=== PATIENT | female | born 1935 | race Caucasian/White ===

== ENCOUNTER 2016-09-11 09:41 | Emergency (ER) | payer MEDICARE ==
[~2016-09-11] VITALS: Ht 152.4 cm; Wt 70.0 kg
[2016-09-11 09:47] VITALS: BP 138/80
[2016-09-11] MEDS ORDERED: MORPHINE SULFATE 4 MG/ML, 1ML ONE (11:13)
[2016-09-11] MEDS ORDERED: ONDANSETRON 2MG/ML, 2ML ONE (11:13)
[2016-09-11] MEDS ORDERED: SODIUM CHLORIDE FLUSH 10ML SYR IVF ONE (11:30)
[2016-09-11] MEDS ORDERED: ONDANSETRON 2MG/ML, 2ML IVPush ONE (11:30)
[2016-09-11] MEDS ORDERED: MORPHINE SULFATE 4 MG/ML, 1ML IVPush PRN (11:30)
[2016-09-11 12:24] LABS: BLOOD UREA NITROGEN 11 mg/dL (7-18)
[2016-09-11 12:30] LABS: IS PT STATUS REG ER OR PRE ER? YES
== END 2016-09-11 13:28 | disposition home or self-care (01) ==
LOC: ED 11:07
DX: S42.291A Other displaced fracture of upper end of right humerus, initial encounter for closed fracture (principal); Z90.49 Acquired absence of other specified parts of digestive tract; Z90.710 Acquired absence of both cervix and uterus; W01.0XXA Fall on same level from slipping, tripping and stumbling without subsequent striking against object, initial encounter; Y93.89 Activity, other specified; Y92.89 Other specified places as the place of occurrence of the external cause; Y99.8 Other external cause status
CPT/HCPCS: 36415; 71010; 73030; 80048; 82040; 84484; 85025; 85610; 93005; 96374; 96375; 99285; J2405

== ENCOUNTER → 2016-09-11 | Outpatient (CLI) | payer MEDICARE ==
[~2016-09-11] MED LIST: ASPI-496 PO; BUDE3CAP6 PO; CHOL10002 PO; CHOL4PAC2 PO; NIAC400C5 PO; PANT40TA3 PO; RED600CA2 PO; TRAM-28 PO; TRAZ100T15 PO; WARF5TAB7 PO-COUM
== END | disposition home or self-care (01) ==
LOC: CFH 08:58
PROVIDERS: ATTEND Internal Medicine
DX: R06.02 Shortness of breath (principal)
CPT/HCPCS: 71020

== ENCOUNTER → 2017-02-08 | Outpatient (CLI) | payer MEDICARE ==
[~2017-02-08] MED LIST changes: +FENO48TA5 PO; +METO25TA91 PO; +OXYC5CAP2 PO; +SIME180C44 PO; -TRAM-28 PO; +TRAM-47 PO; +TRAZ150T62 PO; +WARF6TAB PO; +eliquis PO
== END | disposition home or self-care (01) ==
LOC: STAR 10:04
PROVIDERS: ATTEND Orthopaedic Surgery
DX: Z02.9 Encounter for administrative examinations, unspecified (principal)

== ENCOUNTER 2017-02-15 17:05 | Emergency (ER) | payer MEDICARE ==
[~2017-02-15] VITALS: Ht 152.4 cm; Wt 61.4 kg
[2017-02-15 17:13] VITALS: BP 126/72
[2017-02-15] MEDS ORDERED: SODIUM CHLORIDE 0.9% 1,000ML IVBOLUS ONE (18:00)
[2017-02-15 18:08] LABS: HEMATOCRIT 30.3 % (34.6-47.8); HEMOGLOBIN 9.9 g/dL (11.7-16.4); WHITE BLOOD COUNT 12.5 x10^3/uL (3.4-10)
[2017-02-15 18:20] LABS: BLOOD UREA NITROGEN 10 mg/dL (7-18)
[2017-02-15 18:26] LABS: IS PT STATUS REG ER OR PRE ER? YES
== END 2017-02-15 19:00 | disposition home or self-care (01) ==
LOC: ED 18:01
DX: R06.02 Shortness of breath (principal); D62 Acute posthemorrhagic anemia; F17.210 Nicotine dependence, cigarettes, uncomplicated
CPT/HCPCS: 36415; 71010; 80048; 82040; 83880; 84484; 85025; 93005; 99285

== ENCOUNTER 2018-04-23 08:30 | Inpatient (IN) | payer MEDICARE ==
[~2018-04-23] VITALS: Ht 152.4 cm; Wt 74.7 kg
[~2018-04-23 08:30] MED LIST changes: +TRAZ-137 PO; -TRAZ100T15 PO; +WARF-36 PO-COUM; -WARF5TAB7 PO-COUM
[2018-04-23] MEDS ORDERED: SODIUM CHLORIDE 0.9% 1,000ML IVBOLUS ONE (09:00)
[2018-04-23 09:29] LABS: BASOPHILS # (AUTO) 0.02 x10^3/uL (0-0.1); BASOPHILS % (AUTO) 0 % (0-1); EOSINOPHILS % (AUTO) 14 % (1-7); LYMPHOCYTES # (AUTO) 1.17 x10^3/uL (1-3.4); LYMPHOCYTES % (AUTO) 17 % (22-44); MD NO; MEAN CORPUSCULAR HEMOGLOBIN 31.3 pg (27.0-34.8); MEAN CORPUSCULAR HGB CONC 33.9 g/dL (32.4-35.8); MEAN CORPUSCULAR VOLUME 92.3 fL (80-100); MEAN PLATELET VOLUME 8.3 fL (7.4-10.4); MONOCYTES % (AUTO) 4 % (2-9); NEUTROPHILS # (AUTO) 4.54 x10^3/uL (1.8-6.8); NEUTROPHILS % (AUTO) 65 % (42-75); PLATELET COUNT 302 x10^3/uL (130-400); RED BLOOD COUNT 4.21 x10^6/uL (3.82-5.3); RED CELL DISTRIBUTION WIDTH 14.5 % (9.6-15.2)
[2018-04-23 09:32] LABS: INTERNATIONAL NORMALIZED RATIO 2.63 (0.93-1.1); PROTHROMBIN TIME 26.8 Seconds (9.6-11.5)
[2018-04-23 09:40] LABS: ALANINE AMINOTRANSFERASE 18 U/L (12-78); ALBUMIN 3.1 g/dL (3.4-5.0); CHLORIDE 107 mmol/L (98-107); CREATININE 0.99 mg/dL (0.55-1.02)
[2018-04-23 09:42] LABS: ALKALINE PHOSPHATASE 60 U/L (45-117); BILIRUBIN,TOTAL 0.5 mg/dL (0.2-1.0); CALCIUM 8.7 mg/dL (8.5-10.1); TOTAL PROTEIN 6.7 g/dL (6.4-8.2)
[2018-04-23 09:55] LABS: ANION GAP 9 mmol/L (5-15)
[2018-04-23 10:19] LABS: MICROSCOPIC INDICATED
[2018-04-23 10:58] LABS: CULTURE INDICATED? YES
[2018-04-23] MEDS ORDERED: CEFTRIAXONE PMX 1GM/50ML 50 ML IV ONE (11:00)
[2018-04-23] MEDS ORDERED: CEFTRIAXONE PMX 1GM/50ML 50 ML ONE (11:19)
[2018-04-23] MEDS: SODIUM CHLORIDE 0.9% 1,000 ML IV SCH ×4 (11:27→21:25)
[2018-04-23] MEDS ORDERED: WARF3TAB8 PO (11:35)
[2018-04-23] MEDS ORDERED: LABETALOL 5MG/ML, 20ML IVPush PRN (12:30)
[2018-04-23] MEDS ORDERED: POLYETHYLENE GLYCOL 17 GM PACKET PO PRN (12:30)
[2018-04-23] MEDS ORDERED: ONDANSETRON ODT 4 MG PO PRN (12:30)
[2018-04-23] MEDS ORDERED: ONDANSETRON 2MG/ML, 2ML IVPush PRN (12:30)
[2018-04-23 13:00] VITALS: BP 141/74
[2018-04-23] MEDS ORDERED: SIMETHICONE 125 MG CHEW TAB PO PRN (16:30)
[2018-04-23] MEDS ORDERED: CEFTRIAXONE PMX 1GM/50ML 50 ML IV SCH (16:30)
[2018-04-23] MEDS ORDERED: OXYcodone IR 5MG TABLET PO PRN (16:30)
[2018-04-23] MEDS ORDERED: WARFARIN 2 MG TABLET PO-COUM ONE (18:00)
[2018-04-23] MEDS: TRAZODONE 150MG TABLET PO SCH (21:49)
[2018-04-23 21:51] VITALS: BP 149/79
[2018-04-24] MEDS: SODIUM CHLORIDE 0.9% 1,000 ML IV SCH ×3 (00:47→22:49)
[2018-04-24 02:18] VITALS: BP 145/79
[2018-04-24 04:28] LABS: CLOSTRIDIUM DIFFICILE ANTIGEN NEGATIVE; CLOSTRIDIUM DIFFICILE TOXIN NEGATIVE (Negative)
[2018-04-24 06:31] LABS: BASOPHILS # (AUTO) 0.08 x10^3/uL (0-0.1); BASOPHILS % (AUTO) 1 % (0-1); EOSINOPHILS # (AUTO) 1.01 x10^3/uL (0-0.4); EOSINOPHILS % (AUTO) 16 % (1-7); LYMPHOCYTES # (AUTO) 1.56 x10^3/uL (1-3.4); LYMPHOCYTES % (AUTO) 24 % (22-44); MD NO; MEAN CORPUSCULAR HEMOGLOBIN 30.9 pg (27.0-34.8); MEAN CORPUSCULAR HGB CONC 33.1 g/dL (32.4-35.8); MEAN CORPUSCULAR VOLUME 93.5 fL (80-100); MEAN PLATELET VOLUME 8.5 fL (7.4-10.4); MONOCYTES # (AUTO) 0.55 x10^3/uL (0.2-0.8); MONOCYTES % (AUTO) 9 % (2-9); NEUTROPHILS # (AUTO) 3.28 x10^3/uL (1.8-6.8); NEUTROPHILS % (AUTO) 51 % (42-75); PLATELET COUNT 276 x10^3/uL (130-400); RED BLOOD COUNT 3.82 x10^6/uL (3.82-5.3); RED CELL DISTRIBUTION WIDTH 14.9 % (9.6-15.2)
[2018-04-24 06:43] LABS: ALANINE AMINOTRANSFERASE 16 U/L (12-78); ALBUMIN 2.7 g/dL (3.4-5.0); ANION GAP 8 mmol/L (5-15); CALCIUM 7.9 mg/dL (8.5-10.1); CHLORIDE 112 mmol/L (98-107)
[2018-04-24 06:54] LABS: ALKALINE PHOSPHATASE 55 U/L (45-117); BILIRUBIN,TOTAL 0.3 mg/dL (0.2-1.0)
[2018-04-24 07:11] VITALS: BP 143/62
[2018-04-24] MEDS: SENNA/DOCUSATE TABLET PO SCH (09:00)
[2018-04-24] MEDS ORDERED: METOPROLOL SUCCINATE 25 MG TAB.ER.24H PO SCH (09:00)
[2018-04-24] MEDS: CHOLESTYRAMINE LIGHT 4GM PACKET PO SCH (09:37)
[2018-04-24] MEDS: FENOFIBRATE 54 MG TABLET PO SCH (09:37)
[2018-04-24 09:44] LABS: INTERNATIONAL NORMALIZED RATIO 2.57 (0.93-1.1); PROTHROMBIN TIME 26.2 Seconds (9.6-11.5)
[2018-04-24] MEDS: CEFTRIAXONE PMX 1GM/50ML 50 ML IV SCH (12:53)
[2018-04-24 14:00] VITALS: BP 181/87
[2018-04-24] MEDS ORDERED: WARFARIN 2 MG TABLET PO-COUM ONE (18:00)
[2018-04-24 19:15] VITALS: BP 170/77
[2018-04-24] MEDS ORDERED: hydrALAzine 20 MG/ML, 1ML IV PRN (20:30)
[2018-04-24] MEDS ORDERED: LABETALOL 5MG/ML, 20ML IVPush PRN (20:30)
[2018-04-24 20:54] VITALS: BP 175/75
[2018-04-24] MEDS: TRAZODONE 150MG TABLET PO SCH (21:00)
[2018-04-24 21:37] VITALS: BP 145/67
[2018-04-24] MEDS ORDERED: OMNIPAQUE 350 MG/ML, 75ML BOTTLE ONE (22:10)
[2018-04-25 00:01] VITALS: BP 161/81
[2018-04-25 00:58] VITALS: BP 134/82
[2018-04-25 06:02] LABS: BASOPHILS # (AUTO) 0.07 x10^3/uL (0-0.1); BASOPHILS % (AUTO) 1 % (0-1); EOSINOPHILS # (AUTO) 0.91 x10^3/uL (0-0.4); EOSINOPHILS % (AUTO) 12 % (1-7); LYMPHOCYTES # (AUTO) 2.23 x10^3/uL (1-3.4); LYMPHOCYTES % (AUTO) 28 % (22-44); MD NO; MEAN CORPUSCULAR HEMOGLOBIN 31.1 pg (27.0-34.8); MEAN CORPUSCULAR HGB CONC 33.4 g/dL (32.4-35.8); MEAN CORPUSCULAR VOLUME 93.1 fL (80-100); MEAN PLATELET VOLUME 7.9 fL (7.4-10.4); MONOCYTES # (AUTO) 0.61 x10^3/uL (0.2-0.8); MONOCYTES % (AUTO) 8 % (2-9); NEUTROPHILS % (AUTO) 52 % (42-75); PLATELET COUNT 279 x10^3/uL (130-400); RED BLOOD COUNT 3.73 x10^6/uL (3.82-5.3); RED CELL DISTRIBUTION WIDTH 14.9 % (9.6-15.2)
[2018-04-25 06:10] LABS: ALBUMIN 2.7 g/dL (3.4-5.0); ANION GAP 6 mmol/L (5-15); CALCIUM 7.9 mg/dL (8.5-10.1); CHLORIDE 113 mmol/L (98-107); CREATININE 0.72 mg/dL (0.55-1.02)
[2018-04-25 07:40] VITALS: BP 145/80
[2018-04-25] MEDS: SODIUM CHLORIDE 0.9% 1,000 ML IV SCH (08:06)
[2018-04-25] MEDS: FENOFIBRATE 54 MG TABLET PO SCH (08:14)
[2018-04-25] MEDS: SENNA/DOCUSATE TABLET PO SCH (08:16)
[2018-04-25 08:55] LABS: INTERNATIONAL NORMALIZED RATIO 2.22 (0.93-1.1); PROTHROMBIN TIME 22.7 Seconds (9.6-11.5)
[2018-04-25] MEDS ORDERED: CARVEDILOL 3.125 MG TABLET PO SCH (09:30)
[2018-04-25] MEDS ORDERED: AMLODIPINE 5 MG TABLET PO SCH (09:30)
[2018-04-25] MEDS ORDERED: CARV3.1212 PO (10:49)
[2018-04-25] MEDS ORDERED: CEFD300C37 PO (10:50)
[2018-04-25] MEDS: CHOLESTYRAMINE LIGHT 4GM PACKET PO SCH (11:07)
[2018-04-25] MEDS: CEFTRIAXONE PMX 1GM/50ML 50 ML IV SCH (11:53)
[2018-04-25] MEDS ORDERED: WARFARIN 3 MG TABLET PO-COUM ONE (18:00)
== END 2018-04-25 13:35 | disposition home health service (06) | DRG 690 ==
LOC: ED 09:58 → EDIP 11:06 → 4WST 11:51 → DCLOUNGE 04-25 13:21
PROVIDERS: ADMIT Hospitalist; ATTEND Hospitalist
DX: N39.0 Urinary tract infection, site not specified (principal); E87.2 Acidosis; K51.90 Ulcerative colitis, unspecified, without complications; I11.9 Hypertensive heart disease without heart failure; E78.5 Hyperlipidemia, unspecified; K57.90 Diverticulosis of intestine, part unspecified, without perforation or abscess without bleeding; I70.0 Atherosclerosis of aorta; Z96.611 Presence of right artificial shoulder joint; F17.200 Nicotine dependence, unspecified, uncomplicated; I71.4 Abdominal aortic aneurysm, without rupture; Z82.3 Family history of stroke; Z83.3 Family history of diabetes mellitus; Z86.718 Personal history of other venous thrombosis and embolism; Z87.440 Personal history of urinary (tract) infections; Z90.49 Acquired absence of other specified parts of digestive tract; Z90.710 Acquired absence of both cervix and uterus; Z90.89 Acquired absence of other organs; Z79.01 Long term (current) use of anticoagulants; Z79.899 Other long term (current) drug therapy
CPT/HCPCS: 36415; 71045; 71260; 74176; 80048; 80053; 81001; 82040; 83605; 83735; 84100; 84145; 84439; 84443; 85025; 85610; 87040; 87086; 87324; 96360; 96361; G0378; J0696; Q9967; J0360; J7030

== ENCOUNTER → 2018-09-25 | Outpatient (CLI) | payer MEDICARE ==
[~2018-09-25] MED LIST changes: +CARV3.1212 PO; +CEFD300C37 PO; +WARF3TAB8 PO
== END | disposition home or self-care (01) ==
LOC: CVU 07:59
PROVIDERS: ATTEND Internal Medicine Cardiovascular Disease
DX: I77.1 Stricture of artery (principal); I70.201 Unspecified atherosclerosis of native arteries of extremities, right leg; I71.4 Abdominal aortic aneurysm, without rupture; E78.5 Hyperlipidemia, unspecified; Z95.828 Presence of other vascular implants and grafts
CPT/HCPCS: 93978

== ENCOUNTER 2019-09-06 09:21 | Inpatient (IN) | payer MEDICARE ==
[~2019-09-06] VITALS: Ht 152.4 cm; Wt 64.5 kg
[~2019-09-06 09:21] MED LIST changes: +FENO48TA10 PO; -FENO48TA5 PO; -TRAZ-137 PO; +TRAZ-175 PO
[2019-09-06] MEDS ORDERED: HYDROcodone/APAP 5/325 TABLET PO ONE (09:30)
--- NOTE | 2019-09-06 09:40 | NUR ---
PT TO XRAY
[2019-09-06] MEDS ORDERED: HYDROcodone/APAP 5/325 TABLET ONE (09:54)
--- NOTE | 2019-09-06 10:01 | NUR ---
PT BACK FROM IMAGING, MEDICATED ACCORDING TO MAR, IN BED, RESTING, TV ON FOR DISTRACTION.
[2019-09-06] MEDS ORDERED: WARF1TAB9 PO (10:09)
[2019-09-06] MEDS ORDERED: METO25TA35 PO (10:09)
--- NOTE | 2019-09-06 10:58 | NUR ---
ERP AT BEDSIDE, UPDATING PT ON POC, AND IMAGING RESULTS. PT IN BED, RESPIRATIONS EVEN AND UNLABORED, NO SIGNS OF DISTRESS.
[2019-09-06] MEDS ORDERED: SODIUM CHLORIDE FLUSH 10ML SYR IVF ONE (11:00)
[2019-09-06 11:47] LABS: BASOPHILS # (AUTO) 0.11 x10^3/uL (0-0.1); BASOPHILS % (AUTO) 1 % (0-1); EOSINOPHILS # (AUTO) 0.15 x10^3/uL (0-0.4); EOSINOPHILS % (AUTO) 2 % (1-7); LYMPHOCYTES # (AUTO) 1.87 x10^3/uL (1-3.4); LYMPHOCYTES % (AUTO) 19 % (22-44); MD NO; MEAN CORPUSCULAR HEMOGLOBIN 30.1 pg (27.0-34.8); MEAN CORPUSCULAR HGB CONC 32.7 g/dL (32.4-35.8); MEAN CORPUSCULAR VOLUME 92.1 fL (80-100); MEAN PLATELET VOLUME 8.8 fL (7.4-10.4); MONOCYTES # (AUTO) 0.54 x10^3/uL (0.2-0.8); MONOCYTES % (AUTO) 5 % (2-9); NEUTROPHILS # (AUTO) 7.37 x10^3/uL (1.8-6.8); NEUTROPHILS % (AUTO) 73 % (42-75); PLATELET COUNT 286 x10^3/uL (130-400); RED BLOOD COUNT 4.69 x10^6/uL (3.82-5.3); RED CELL DISTRIBUTION WIDTH 14.8 % (9.6-15.2)
[2019-09-06 11:57] LABS: ALBUMIN 2.8 g/dL (3.4-5.0); ANION GAP 8 mmol/L (5-15); CALCIUM 8.9 mg/dL (8.5-10.1); CHLORIDE 107 mmol/L (98-107); CREATININE 0.82 mg/dL (0.55-1.02)
--- NOTE | 2019-09-06 11:59 | NUR ---
ANILA GAITAN AT BEDSIDE TO ATTEMPT IV
--- NOTE | 2019-09-06 12:26 | NUR ---
PT IN BED, STRAIGHT CATH PERFORMED PER PROTOCOL, TOLERATED WELL, NO SIGNS OF DISTRESS.
[2019-09-06] MEDS ORDERED: ACETAMINOPHEN 325 MG TABLET PO PRN (12:30)
[2019-09-06] MEDS ORDERED: hydrALAzine 20 MG/ML, 1ML IVPush PRN (12:30)
[2019-09-06 12:58] LABS: MICROSCOPIC AUTO
[2019-09-06 12:59] LABS: CULTURE INDICATED? NO
[2019-09-06 13:03] LABS: INTERNATIONAL NORMALIZED RATIO 6.51 (0.93-1.1); PROTHROMBIN TIME 70.3 Seconds (9.6-11.5)
--- NOTE | 2019-09-06 13:33 | NUR ---
report given to carl gomez. pt to imaging.
[2019-09-06 20:04] VITALS: BP 139/84
[2019-09-06] MEDS: TRAZODONE 150MG TABLET PO SCH (23:04)
[2019-09-07] MEDS: morphine SULFATE 10 MG/ML, 1ML IVPush PRN ×6 (01:36→23:27)
[2019-09-07 01:39] VITALS: BP 152/99
[2019-09-07 05:19] LABS: BASOPHILS # (AUTO) 0.08 x10^3/uL (0-0.1); BASOPHILS % (AUTO) 1 % (0-1); EOSINOPHILS # (AUTO) 0.67 x10^3/uL (0-0.4); EOSINOPHILS % (AUTO) 7 % (1-7); LYMPHOCYTES # (AUTO) 2.42 x10^3/uL (1-3.4); LYMPHOCYTES % (AUTO) 25 % (22-44); MD NO; MEAN CORPUSCULAR HEMOGLOBIN 30.6 pg (27.0-34.8); MEAN CORPUSCULAR HGB CONC 32.8 g/dL (32.4-35.8); MEAN CORPUSCULAR VOLUME 93.3 fL (80-100); MEAN PLATELET VOLUME 8.9 fL (7.4-10.4); MONOCYTES # (AUTO) 0.61 x10^3/uL (0.2-0.8); MONOCYTES % (AUTO) 6 % (2-9); NEUTROPHILS # (AUTO) 6.06 x10^3/uL (1.8-6.8); NEUTROPHILS % (AUTO) 62 % (42-75); PLATELET COUNT 273 x10^3/uL (130-400); RED BLOOD COUNT 4.37 x10^6/uL (3.82-5.3); RED CELL DISTRIBUTION WIDTH 14.7 % (9.6-15.2)
[2019-09-07 05:34] LABS: CHLORIDE 107 mmol/L (98-107); INTERNATIONAL NORMALIZED RATIO 5.18 (0.93-1.1); PROTHROMBIN TIME 55.8 Seconds (9.6-11.5)
[2019-09-07 05:40] LABS: ANION GAP 9 mmol/L (5-15); CALCIUM 8.7 mg/dL (8.5-10.1); CREATININE 0.57 mg/dL (0.55-1.02)
[2019-09-07 06:39] VITALS: BP 150/69
[2019-09-07] MEDS: FENOFIBRATE 54 MG TABLET PO SCH (07:41)
[2019-09-07] MEDS: METOPROLOL TARTRATE 25 MG TAB PO SCH (07:41)
[2019-09-07] MEDS ORDERED: PHYTONADIONE 5 MG TABLET PO ONE (11:30)
[2019-09-07] MEDS ORDERED: HEPARIN 5,000 UNITS/ML, 1ML IV ONE (12:00)
[2019-09-07] MEDS ORDERED: HEPARIN 25,000 UNITS/250ML PMX 250 ML IV PRN (12:00)
[2019-09-07] MEDS ORDERED: HEPARIN 5,000 UNITS/ML, 1ML IV PRN (12:00)
[2019-09-07 12:50] VITALS: BP 138/77
[2019-09-07 19:37] VITALS: BP 131/77
[2019-09-07 21:35] LABS: CLOSTRIDIUM DIFFICILE ANTIGEN POSITIVE; CLOSTRIDIUM DIFFICILE TOXIN NEGATIVE (Negative)
[2019-09-07] MEDS: TRAZODONE 150MG TABLET PO SCH (22:20)
[2019-09-08 00:40] VITALS: BP 108/72
[2019-09-08] MEDS: morphine SULFATE 10 MG/ML, 1ML IVPush PRN ×4 (03:18→21:24)
[2019-09-08 05:42] LABS: BASOPHILS # (AUTO) 0.09 x10^3/uL (0-0.1); BASOPHILS % (AUTO) 1 % (0-1); EOSINOPHILS # (AUTO) 0.25 x10^3/uL (0-0.4); EOSINOPHILS % (AUTO) 2 % (1-7); LYMPHOCYTES # (AUTO) 2.74 x10^3/uL (1-3.4); LYMPHOCYTES % (AUTO) 26 % (22-44); MD NO; MEAN CORPUSCULAR HEMOGLOBIN 30.1 pg (27.0-34.8); MEAN CORPUSCULAR HGB CONC 32.5 g/dL (32.4-35.8); MEAN CORPUSCULAR VOLUME 92.7 fL (80-100); MEAN PLATELET VOLUME 9.1 fL (7.4-10.4); MONOCYTES # (AUTO) 0.66 x10^3/uL (0.2-0.8); MONOCYTES % (AUTO) 6 % (2-9); NEUTROPHILS # (AUTO) 6.65 x10^3/uL (1.8-6.8); NEUTROPHILS % (AUTO) 64 % (42-75); PLATELET COUNT 273 x10^3/uL (130-400); RED BLOOD COUNT 4.01 x10^6/uL (3.82-5.3); RED CELL DISTRIBUTION WIDTH 14.6 % (9.6-15.2)
[2019-09-08 05:51] LABS: ANION GAP 8 mmol/L (5-15); CALCIUM 8.6 mg/dL (8.5-10.1); CHLORIDE 104 mmol/L (98-107)
[2019-09-08 05:56] LABS: INTERNATIONAL NORMALIZED RATIO 1.38 (0.93-1.1)
[2019-09-08 05:57] LABS: PROTHROMBIN TIME 14.7 Seconds (9.6-11.5)
[2019-09-08 07:26] VITALS: BP 111/70
[2019-09-08] MEDS: METOPROLOL TARTRATE 25 MG TAB PO SCH (08:04)
[2019-09-08] MEDS: FENOFIBRATE 54 MG TABLET PO SCH (08:05)
[2019-09-08 12:59] VITALS: BP 124/79
[2019-09-08] MEDS ORDERED: HEPARIN 5,000 UNITS/ML, 1ML IV ONE (14:00)
[2019-09-08] MEDS: HEPARIN 25,000 UNITS/250ML PMX 250 ML IV PRN (16:07)
[2019-09-08] MEDS: HEPARIN 5,000 UNITS/ML, 1ML IV PRN (16:08)
[2019-09-08 18:51] VITALS: BP 123/75
[2019-09-08] MEDS: TRAZODONE 150MG TABLET PO SCH (21:20)
[2019-09-09] MEDS: HEPARIN 5,000 UNITS/ML, 1ML IV PRN (02:03)
[2019-09-09 02:37] VITALS: BP 144/79
[2019-09-09 05:57] LABS: BASOPHILS # (AUTO) 0.09 x10^3/uL (0-0.1); BASOPHILS % (AUTO) 1 % (0-1); EOSINOPHILS # (AUTO) 0.63 x10^3/uL (0-0.4); EOSINOPHILS % (AUTO) 7 % (1-7); LYMPHOCYTES # (AUTO) 2.28 x10^3/uL (1-3.4); LYMPHOCYTES % (AUTO) 24 % (22-44); MD NO; MEAN CORPUSCULAR HEMOGLOBIN 30.5 pg (27.0-34.8); MEAN CORPUSCULAR HGB CONC 32.7 g/dL (32.4-35.8); MEAN CORPUSCULAR VOLUME 93.2 fL (80-100); MONOCYTES # (AUTO) 0.66 x10^3/uL (0.2-0.8); MONOCYTES % (AUTO) 7 % (2-9); NEUTROPHILS % (AUTO) 61 % (42-75); PLATELET COUNT 262 x10^3/uL (130-400); RED BLOOD COUNT 3.89 x10^6/uL (3.82-5.3); RED CELL DISTRIBUTION WIDTH 14.4 % (9.6-15.2)
[2019-09-09 06:04] LABS: ANION GAP 6 mmol/L (5-15); CALCIUM 8.5 mg/dL (8.5-10.1); CHLORIDE 102 mmol/L (98-107); CREATININE 0.73 mg/dL (0.55-1.02)
[2019-09-09 07:19] VITALS: BP 157/83
[2019-09-09] MEDS: FENOFIBRATE 54 MG TABLET PO SCH (09:11)
[2019-09-09] MEDS: METOPROLOL TARTRATE 25 MG TAB PO SCH (09:11)
[2019-09-09] MEDS: morphine SULFATE 10 MG/ML, 1ML IVPush PRN ×3 (09:11→20:04)
[2019-09-09 09:25] LABS: INTERNATIONAL NORMALIZED RATIO 1.01 (0.93-1.1); PROTHROMBIN TIME 10.7 Seconds (9.6-11.5)
[2019-09-09] MEDS ORDERED: POTASSIUM CHLORIDE 40 MEQ in SODIUM CHLORIDE 0.9% 500 ML IV ONE (10:30)
[2019-09-09] MEDS: NICOTINE 14MG/24 HR PATCH.TD24 TD SCH (12:54)
[2019-09-09 12:55] VITALS: BP 136/81
[2019-09-09 19:35] VITALS: BP 109/80
[2019-09-09] MEDS: HEPARIN 25,000 UNITS/250ML PMX 250 ML IV PRN (20:03)
[2019-09-09] MEDS: TRAZODONE 150MG TABLET PO SCH (20:04)
[2019-09-10] MEDS: TRAZODONE 150MG TABLET PO SCH ×3 (00:22→21:17)
[2019-09-10 01:13] VITALS: BP 145/88
[2019-09-10 06:40] LABS: BASOPHILS # (AUTO) 0.06 x10^3/uL (0-0.1); BASOPHILS % (AUTO) 1 % (0-1); EOSINOPHILS # (AUTO) 0.63 x10^3/uL (0-0.4); EOSINOPHILS % (AUTO) 6 % (1-7); LYMPHOCYTES # (AUTO) 3.85 x10^3/uL (1-3.4); LYMPHOCYTES % (AUTO) 38 % (22-44); MD NO; MEAN CORPUSCULAR HEMOGLOBIN 30.4 pg (27.0-34.8); MEAN CORPUSCULAR HGB CONC 32.5 g/dL (32.4-35.8); MEAN CORPUSCULAR VOLUME 93.6 fL (80-100); MONOCYTES # (AUTO) 0.63 x10^3/uL (0.2-0.8); MONOCYTES % (AUTO) 6 % (2-9); NEUTROPHILS # (AUTO) 4.97 x10^3/uL (1.8-6.8); NEUTROPHILS % (AUTO) 49 % (42-75); PLATELET COUNT 311 x10^3/uL (130-400); RED BLOOD COUNT 3.94 x10^6/uL (3.82-5.3); RED CELL DISTRIBUTION WIDTH 14.3 % (9.6-15.2)
[2019-09-10 06:50] LABS: CHLORIDE 107 mmol/L (98-107)
[2019-09-10 06:55] LABS: ANION GAP 5 mmol/L (5-15); CALCIUM 8.8 mg/dL (8.5-10.1); CREATININE 0.66 mg/dL (0.55-1.02)
[2019-09-10 07:52] VITALS: BP 157/77
[2019-09-10] MEDS: FENOFIBRATE 54 MG TABLET PO SCH (07:55)
[2019-09-10] MEDS: METOPROLOL TARTRATE 25 MG TAB PO SCH (07:56)
[2019-09-10] MEDS ORDERED: LIDOCAINE 1%, 20ML ONE (09:33)
[2019-09-10] MEDS ORDERED: FENTANYL PF 100 MCG/2ML ONE (10:25)
[2019-09-10] MEDS ORDERED: PROPOFOL 10 MG/ML, 20ML ONE (10:57)
[2019-09-10] MEDS ORDERED: VISIPAQUE 270 MG/ML, 50ML BOTTLE ONE (11:38)
[2019-09-10] MEDS ORDERED: MORPHINE SULFATE 4 MG/ML, 1ML ONE (12:08)
[2019-09-10] MEDS ORDERED: hydrALAzine 20 MG/ML, 1ML ONE (12:08)
[2019-09-10] MEDS: MORPHINE SULFATE 4 MG/ML, 1ML IVPush PRN ×2 (12:11→12:23)
[2019-09-10] MEDS ORDERED: ONDANSETRON 2MG/ML, 2ML IV PRN (12:30)
[2019-09-10] MEDS ORDERED: hydrALAzine 20 MG/ML, 1ML IV PRN (12:30)
[2019-09-10] MEDS ORDERED: OXYcodone 5 MG/5 ML ORAL.SOL UDC PO PRN (12:30)
[2019-09-10] MEDS ORDERED: METOPROLOL 1 MG/ML, 5ML IV PRN (12:30)
[2019-09-10] MEDS ORDERED: FENTANYL PF 100 MCG/2ML IV PRN (12:30)
[2019-09-10] MEDS ORDERED: HYDROmorphone 2 MG/ML, 1ML IVPush PRN (12:30)
[2019-09-10] MEDS ORDERED: LABETALOL 5MG/ML, 20ML IV PRN (12:30)
[2019-09-10 13:51] VITALS: BP 119/73
[2019-09-10] MEDS: NICOTINE 14MG/24 HR PATCH.TD24 TD SCH (14:09)
[2019-09-10] MEDS ORDERED: WARFARIN 2 MG TABLET PO-COUM SCH (18:00)
[2019-09-10 19:03] LABS: INTERNATIONAL NORMALIZED RATIO 0.94 (0.93-1.1)
[2019-09-10 19:23] VITALS: BP 121/69
[2019-09-10] MEDS: morphine SULFATE 10 MG/ML, 1ML IVPush PRN (21:16)
[2019-09-11 02:16] VITALS: BP 148/74
[2019-09-11 05:49] LABS: INTERNATIONAL NORMALIZED RATIO 0.97 (0.93-1.1); PROTHROMBIN TIME 10.3 Seconds (9.6-11.5)
[2019-09-11 07:13] VITALS: BP 124/50
[2019-09-11] MEDS: FENOFIBRATE 54 MG TABLET PO SCH (08:05)
[2019-09-11] MEDS: METOPROLOL TARTRATE 25 MG TAB PO SCH (08:05)
[2019-09-11 12:00] VITALS: BP 143/74
[2019-09-11] MEDS: NICOTINE 14MG/24 HR PATCH.TD24 TD SCH (12:08)
[2019-09-11] MEDS: morphine SULFATE 10 MG/ML, 1ML IVPush PRN ×3 (12:09→21:24)
[2019-09-11] MEDS ORDERED: WARFARIN 2 MG TABLET PO-COUM ONE (17:00)
[2019-09-11 20:33] VITALS: BP 115/74
[2019-09-11] MEDS: TRAZODONE 150MG TABLET PO SCH (21:23)
[2019-09-12 00:27] VITALS: BP 128/63
[2019-09-12 05:25] LABS: BASOPHILS # (AUTO) 0.05 x10^3/uL (0-0.1); BASOPHILS % (AUTO) 1 % (0-1); EOSINOPHILS # (AUTO) 0.49 x10^3/uL (0-0.4); EOSINOPHILS % (AUTO) 5 % (1-7); LYMPHOCYTES # (AUTO) 3.02 x10^3/uL (1-3.4); LYMPHOCYTES % (AUTO) 32 % (22-44); MD NO; MEAN CORPUSCULAR HEMOGLOBIN 30.4 pg (27.0-34.8); MEAN CORPUSCULAR HGB CONC 32.6 g/dL (32.4-35.8); MEAN PLATELET VOLUME 9.2 fL (7.4-10.4); MONOCYTES # (AUTO) 0.68 x10^3/uL (0.2-0.8); MONOCYTES % (AUTO) 7 % (2-9); NEUTROPHILS # (AUTO) 5.28 x10^3/uL (1.8-6.8); NEUTROPHILS % (AUTO) 55 % (42-75); PLATELET COUNT 291 x10^3/uL (130-400); RED BLOOD COUNT 3.79 x10^6/uL (3.82-5.3)
[2019-09-12 05:28] LABS: INTERNATIONAL NORMALIZED RATIO 1.01 (0.93-1.1); PROTHROMBIN TIME 10.7 Seconds (9.6-11.5)
[2019-09-12 05:36] LABS: ANION GAP 7 mmol/L (5-15); CALCIUM 8.7 mg/dL (8.5-10.1); CHLORIDE 107 mmol/L (98-107); CREATININE 0.77 mg/dL (0.55-1.02)
[2019-09-12 08:14] VITALS: BP 136/68
[2019-09-12] MEDS: FENOFIBRATE 54 MG TABLET PO SCH (08:55)
[2019-09-12] MEDS: METOPROLOL TARTRATE 25 MG TAB PO SCH (08:56)
[2019-09-12 12:27] VITALS: BP 135/85
[2019-09-12] MEDS: NICOTINE 14MG/24 HR PATCH.TD24 TD SCH (12:45)
[2019-09-12] MEDS ORDERED: WARFARIN 7.5 MG TABLET PO-COUM ONE (18:00)
[2019-09-12 19:34] VITALS: BP 95/60
[2019-09-12] MEDS: TRAZODONE 150MG TABLET PO SCH (22:04)
[2019-09-13 01:53] VITALS: BP 126/79
[2019-09-13 07:07] VITALS: BP 129/72
[2019-09-13 07:48] LABS: INTERNATIONAL NORMALIZED RATIO 1.35 (0.93-1.1); PROTHROMBIN TIME 14.4 Seconds (9.6-11.5)
[2019-09-13] MEDS: FENOFIBRATE 54 MG TABLET PO SCH (09:11)
[2019-09-13] MEDS: METOPROLOL TARTRATE 25 MG TAB PO SCH (09:11)
[2019-09-13 12:01] VITALS: BP 128/78
[2019-09-13] MEDS: NICOTINE 14MG/24 HR PATCH.TD24 TD SCH (12:53)
[2019-09-13] MEDS ORDERED: WARFARIN 3 MG TABLET PO-COUM ONE (18:00)
== END 2019-09-13 14:23 | disposition home or self-care (01) | DRG 516 ==
LOC: ED 10:37 → EDIP 12:12 → 3N 14:44
PROVIDERS: ADMIT Internal Medicine Infectious Disease; ATTEND Hospitalist
PROC: 0QU03JZ Supplement Lumbar Vertebra with Synthetic Substitute, Percutaneous Approach (ICD-10-PCS; 2019-09-10)
PROC: 0QS03ZZ Reposition Lumbar Vertebra, Percutaneous Approach (ICD-10-PCS; principal; 2019-09-10 10:00)
DX: S32.021A Stable burst fracture of second lumbar vertebra, initial encounter for closed fracture (principal); I82.403 Acute embolism and thrombosis of unspecified deep veins of lower extremity, bilateral; K51.90 Ulcerative colitis, unspecified, without complications; D68.9 Coagulation defect, unspecified; M54.5 Low back pain; E11.51 Type 2 diabetes mellitus with diabetic peripheral angiopathy without gangrene; I10 Essential (primary) hypertension; E78.5 Hyperlipidemia, unspecified; K57.90 Diverticulosis of intestine, part unspecified, without perforation or abscess without bleeding; Z96.611 Presence of right artificial shoulder joint; F17.210 Nicotine dependence, cigarettes, uncomplicated; E87.6 Hypokalemia; Z53.29 Procedure and treatment not carried out because of patient's decision for other reasons; E03.9 Hypothyroidism, unspecified; S73.101A Unspecified sprain of right hip, initial encounter; W01.0XXA Fall on same level from slipping, tripping and stumbling without subsequent striking against object, initial encounter; Z90.710 Acquired absence of both cervix and uterus; Z86.718 Personal history of other venous thrombosis and embolism; Z79.01 Long term (current) use of anticoagulants; Z90.49 Acquired absence of other specified parts of digestive tract; Z82.3 Family history of stroke; Z83.3 Family history of diabetes mellitus; Y93.89 Activity, other specified; Y92.89 Other specified places as the place of occurrence of the external cause; Y99.8 Other external cause status
CPT/HCPCS: 22514; 36415; 72072; 72110; 72158; 73523; 80048; 81001; 82040; 85025; 85520; 85610; 87324; 87493; G0378; J1644; J2704; J3010; J3480; Q9966; C1713; J0360; J2270; J7040